=== PATIENT | female | born 1985 | race Two or more races ===

== ENCOUNTER → 2024-06-02 | Emergency (ER) | payer MEDICAID | END | disposition left against medical advice (07) | LOC: ER 08:27 | DX: S99.919A Unspecified injury of unspecified ankle, initial encounter (principal); Z53.21 Procedure and treatment not carried out due to patient leaving prior to being seen by health care provider; X58.XXXA Exposure to other specified factors, initial encounter; Y93.89 Activity, other specified; Y92.89 Other specified places as the place of occurrence of the external cause; Y99.8 Other external cause status ==